=== PATIENT | female | born 1980 | race Caucasian/White ===

== ENCOUNTER 2021-01-04 19:07 | Observation (INO) | payer OTHER ==
[~2021-01-04] VITALS: Ht 157.5 cm; Wt 73.9 kg
[~2021-01-04 19:07] MED LIST: ADDERALL XR 3030 MG PO; CIPRO500 MG PO; CITRATE OF MAG296 ML PO; DEXILANT60 MG; MIRALAX17 G1; PRENATAL; TRULANCE3 MG PO; VITAMIN D2000 UNIT
[2021-01-04 19:15] VITALS: BP 137/56
[2021-01-04] MEDS ORDERED: VYVANSE40 MG PO (19:17)
[2021-01-04] MEDS ORDERED: EFFEXOR XR150 MG PO (19:18)
[2021-01-04] MEDS ORDERED: SENNA PLUS TAB1 EACH PO (19:18)
[2021-01-04] MEDS ORDERED: BACTRIM DS TAB1 EAC1 PO (19:18)
[2021-01-04 19:35] LABS: ABSOLUTE EOSINOPHILS 0.1 thou/uL (0.0-0.7); ABSOLUTE LYMPHOCYTES 1.3 thou/uL (0.8-5.3); ABSOLUTE MONOCYTES 0.7 thou/uL (0.0-1.2); ABSOLUTE NEUTROPHILS 3.2 thou/uL (1.6-8.1); BASOPHILS 0.6 %; EOSINOPHILS 1.6 %; HEMATOCRIT 42.6 % (37.0-47.0); HEMOGLOBIN 14.5 gm/dL (12.0-15.0); LYMPHOCYTES 24.9 %; MCH 31.6 pg (26.0-34.0); MONOCYTES 12.8 %; MPV 8.5 fl. (7.2-11.1); NUCLEATED RBCS 0 /100WBC; PLATELET COUNT* 285 thou/uL (150-400); POLYS 60.1 %; RBC 4.58 mil/uL (4.20-5.00); RDW-CV 12.6 % (10.5-14.5); WBC 5.3 thou/uL (4.0-11.0)
[2021-01-04 19:42] LABS: URINE BILIRUBIN NEGATIVE (Negative); URINE BLOOD TRACE (Negative); URINE CLARITY CLEAR; URINE COLOR YELLOW; URINE GLUCOSE-RANDOM NEGATIVE (Negative); URINE KETONES NEGATIVE (Negative); URINE NITRITE-REFLEX NEGATIVE (Negative); URINE PROTEIN NEGATIVE (Negative); URINE UROBILINOGEN 0.2 E.U./dl (0.2-1.0)
[2021-01-04 19:43] LABS: CALCIUM 9.2 mg/dL (8.5-10.1); CREATININE 0.7 mg/dL (0.6-1.3); POTASSIUM 3.9 mmol/L (3.5-5.1)
[2021-01-04 19:45] LABS: URINE LEUKOCYTES-REFLEX 2+ (Negative)
[2021-01-04 19:47] LABS: ALBUMIN 3.9 g/dL (3.4-5.0); TOTAL BILIRUBIN 0.2 mg/dL (<0.1-1.0); TOTAL PROTEIN 8.2 g/dL (6.4-8.2)
[2021-01-04 19:49] LABS: SQUAMOUS 0-3 Few /LPF (0-3)
[2021-01-04 19:50] LABS: BACTERIA-REFLEX 1-9 Few /HPF (None Seen); CASTS None Seen /LPF (None Seen); CRYSTALS None Seen /LPF (None Seen); URINE RBC 0-2 Rare /HPF (0-2); URINE WBC-REFLEX 0-5 Rare /HPF (0-5)
[2021-01-04] MEDS ORDERED: ONDANSETRON HCL4 M2 PO (21:58)
[2021-01-05 02:00] VITALS: BP 117/74
[2021-01-05 05:00] VITALS: BP 115/70
[2021-01-05 09:15] VITALS: BP 108/69
[2021-01-05 13:45] VITALS: BP 128/87
[2021-01-05 14:35] VITALS: BP 128/87
--- NOTE | 2021-01-05 15:50 | NUR ---
ADMISSION HX AND ASSESSMENT COMPLETED. PT AWAITING EGD IN PRE-OP BY DR. WHELAN. PT FRUSTRATED THAT DR. WHELAN IS RUNNING BEHIND. MUCH REASSURANCE PROVIDED TO PT. PT HAS HX OF IBS-C. PT HAS CURRENT UTI. RCVNG IV ROCEPHIN. PT IS AXOX4. PLAN IS FOR PT TO BE DISCHARGED HOME AFTER PROCEDURE AND RECOMMENDATIONS WILL BE MADE BY DR. WHELAN FOR FURTHER INSTRUCTIONS.
[2021-01-05] MEDS ORDERED: PROTONIX40 M2 PO (16:44)
[2021-01-05 16:45] VITALS: BP 128/87
--- NOTE | 2021-01-08 07:32 | CON ---
[address] [address] CONSULTATION Name: JYOTI JACKSON Room: [address] Diana Patel#: [id number] Admission: 01/04/21 Attend Phys: Rajeev Cardenas Discharge: 01/05/21 Date of : 82 Report #: [id number] THIS REPORT FOR: cc: GEOVANNY CALDERON APRN, ASHLEY APRN Bodenstab, Johnna L. FNP ~ DOC #: [id number] cc: MITESH Cadet FNP DATE OF CONSULTATION: 01/05/2021 Please note, at the time of this dictation, the patient was seen and physically examined by myself. REASON FOR CONSULTATION: Abdominal pain, bloating, regurgitation and belching. 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 The patient has been having issues over the past week with initially starting with diarrhea from the previous week in which everyone in the family was having profuse diarrhea with some abdominal cramping at that time. She did have thought initially she had food poisoning because she did have some blood noted in her stool. Here over the past several days, she has had increased abdominal discomfort, bloating to the extent that she looks 7-9 months , she is having reflux issues which she normally does not have along with belching and regurgitation, but very minimal vomiting if any. She has been taking Gas-X and Tums, she has taken Dexilant and nothing has calmed her upper symptoms down. She states her bowels have been moving daily, soft and formed with no bright red blood or any black noted and this has been over the past since she got over her diarrhea, she has been continuing to go regularly where she fully evacuates her bowels without any issues. She has been changed her bowel regimen, was taking senna on a daily basis. She does have a longstanding history before of irritable bowel syndrome towards constipation, which may have been related to previous medications that she was on that could have caused some of the constipation. She recently has been taken off those medicines and new medicines have been switched up and that is when her constipation improved. The patient has never had an EGD, but she has had a colonoscopy done in the past related to her constipation, which has been essentially negative. ALLERGIES: AMOXICILLIN AND POTASSIUM. MEDICATIONS: Currently from home are Vyvanse, Effexor, senna, and Bactrim. PAST MEDICAL HISTORY: Hypothyroidism, GERD, anxiety, ADHD, diverticulosis, [place] [address] CONSULTATION Name: JYOTI JACKSON Room: [address] Diana Patel#: [id number] Admission: 01/04/21 Attend Phys: Rajeev Cardenas Discharge: 01/05/21 Date of : 82 Report #: [id number] irritable bowel towards constipation under control currently with senna and a recent diagnosis of UTI. PAST SURGICAL HISTORY: Thyroidectomy. FAMILY HISTORY: Negative for any GI or female cancers. SOCIAL HISTORY: Alcohol socially. Denies any tobacco use or any illegal drug use. REVIEW OF SYSTEMS: Twelve point review of systems is essentially negative except what is mentioned in the HPI. PHYSICAL EXAMINATION: VITAL SIGNS: Temperature 36.8, pulse 64, respirations 14 and blood pressure 115/70. HEART: Regular rate and rhythm. LUNGS: Clear. ABDOMEN: Distended, positive bowel sounds in all 4 quadrants with diffuse tenderness throughout. LABORATORY DATA: Hemoglobin 14.5, white count is 5.3 and platelets 285. GFR is 93. CT scan showed dilated small bowel loops, a small hemangioma, liver cyst and right ovarian cyst measuring 1.5 x 1.2 cm. IMPRESSION: 1. Abdominal pain. 2. Nausea. 3. Belching and regurgitation. 4. Bloating, severe. 5. Irritable bowel towards constipation. 6. Urinary tract infection. PLAN: 1. EGD today with Dr. Phillips. 2. Further recommendations after EGD and will likely be discharged. Thank you for allowing us to participate in this patient's care. Please do not hesitate to call with any questions regarding this consult. MD TANIYA Yee/[place] [address] CONSULTATION Name: JYOTI JACKSON Room: [address] Diana Patel#: [id number] Admission: 01/04/21 Attend Phys: Rajeev Cardenas Discharge: 01/05/21 Date of : 82 Report #: [id number] <ELECTRONICALLY SIGNED> By: Patrica Hawkins, MITESH 01/08/21 0732 [id number] Hawkins, MITESH /joe
== END 2021-01-05 17:01 | disposition home or self-care (01) ==
LOC: M.ERS 19:07 → M.TBA-ER 22:10
PROVIDERS: Physician Assistant; ADMIT Internal Medicine; ATTEND Internal Medicine
DX: R14.0 Abdominal distension (gaseous) (principal); K26.9 Duodenal ulcer, unspecified as acute or chronic, without hemorrhage or perforation; K44.9 Diaphragmatic hernia without obstruction or gangrene; Z20.822 Contact with and (suspected) exposure to COVID-19; R11.10 Vomiting, unspecified; F90.9 Attention-deficit hyperactivity disorder, unspecified type; E03.9 Hypothyroidism, unspecified; K21.9 Gastro-esophageal reflux disease without esophagitis; F41.9 Anxiety disorder, unspecified; Z88.1 Allergy status to other antibiotic agents; Z88.8 Allergy status to other drugs, medicaments and biological substances